=== PATIENT | male | born 1980 | race Caucasian/White ===

== ENCOUNTER 2017-02-03 18:29 | Emergency (ER) | payer OTHER ==
[~2017-02-03 18:29] MED LIST: Z.0.NO CURRENT MEDS
[2017-02-03 18:31] VITALS: BP 131/79; PULSE 88; RESP 14; TEMP 98.8; O2SAT 97
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
[2017-02-03] MEDS ORDERED: SILV1CRE20 TOPICAL (19:26)
== END 2017-02-03 19:50 | disposition home or self-care (01) ==
LOC: NEPK 18:29
DX: T24.201A Burn of second degree of unspecified site of right lower limb, except ankle and foot, initial encounter (principal); X19.XXXA Contact with other heat and hot substances, initial encounter
CPT/HCPCS: 99283

== ENCOUNTER 2017-06-06 13:41 | Emergency (ER) | payer OTHER ==
[~2017-06-06] VITALS: Ht 165.1 cm; Wt 91.0 kg
[~2017-06-06 13:41] MED LIST changes: +SILV1CRE20 TOPICAL
[2017-06-06 13:51] VITALS: BP 135/80; PULSE 112; RESP 16; TEMP 98.1; O2SAT 96
[2017-06-06 14:52] LABS: AUTOMATED NEUTROPHIL # 3.7 TH/MM3 (1.8-7.7); BASOPHIL % 0.6 % (0.0-2.0); EOSINOPHIL % 0.4 % (0.0-4.0); HEMATOCRIT 46.6 % (39.0-51.0); HEMOGLOBIN 16.4 GM/DL (13.0-17.0); LYMPH % 22.8 % (9.0-44.0); LYMPHOCYTE # 1.3 TH/MM3 (1.0-4.8); MEAN CELL VOLUME 85.3 FL (80.0-100.0); MEAN CORPUSCULAR HGB CONC 35.2 % (32.0-36.0); MEAN PLATELET VOLUME 8.6 FL (7.0-11.0); MONO % 8.4 % (0.0-8.0); MONOCYTE # 0.5 TH/MM3 (0-0.9); NEUT % 67.8 % (16.0-70.0); PLATELET COUNT 173 TH/MM3 (150-450); RED BLOOD COUNT 5.46 MIL/MM3 (4.50-5.90); RED CELL DISTRIBUTION WIDTH 13.1 % (11.6-17.2); WHITE BLOOD COUNT 5.5 TH/MM3 (4.0-11.0)
[2017-06-06 14:58] LABS: ALBUMIN 3.2 GM/DL (3.4-5.0); ALKALINE PHOSPHATASE 111 U/L (45-117); ALT (GPT) 35 U/L (12-78); AST (GOT) 21 U/L (15-37); BICARBONATE 24.6 MEQ/L (21.0-32.0); CALCIUM 7.7 MG/DL (8.5-10.1); CHLORIDE 99 MEQ/L (98-107); CREATININE 0.85 MG/DL (0.60-1.30); GLOMERULAR FILTRATION RATE 101 ML/MIN (>89); GLUCOSE,RANDOM 305 MG/DL (74-106); SODIUM (NA) 133 MEQ/L (136-145); TOTAL BILIRUBIN ADULT 0.4 MG/DL (0.2-1.0); TOTAL PROTEIN 7.8 GM/DL (6.4-8.2)
[2017-06-06 15:02] LABS: BLOOD UREA NITROGEN 14 MG/DL (7-18)
== END 2017-06-06 17:49 | disposition left against medical advice (07) ==
LOC: NETRI 13:41
DX: J11.1 Influenza due to unidentified influenza virus with other respiratory manifestations (principal)
CPT/HCPCS: 80053; 85025; 99281